=== PATIENT | female | born 1955 | race Caucasian/White ===

== ENCOUNTER 2019-04-06 09:15 | Emergency (ER) | payer BC ==
[~2019-04-06] VITALS: Ht 170.2 cm; Wt 121.0 kg
[2019-04-06 09:33] VITALS: BP 155/123
== END 2019-04-06 10:22 | disposition home or self-care (01) ==
LOC: ER 09:16
DX: M75.01 Adhesive capsulitis of right shoulder (principal); Z88.0 Allergy status to penicillin
CPT/HCPCS: 99281